=== PATIENT | male | born 1995 | race Caucasian/White ===

== ENCOUNTER 2018-02-21 13:17 | Emergency (ER) | payer OTHER, SELFPAY ==
[2018-02-21 13:18] VITALS: BP 122/64; PULSE 70; RESP 16; TEMP 36.9; O2SAT 99; BMI 24.8
--- NOTE | 2018-02-21 13:38 | ED.DCSUM_ITS ---
- ER Visit Summary Date of Service: 02/21/18 Chief Complaint: [] Abdominal pain, nausea/vomiting/diarrhea History of Present Illness: The patient is a 23 M [] complaining of abdominal pain and nausea, vomiting, diarrhea beginning yesterday. Patient appears slightly anxious. Reports his father was diagnosed with Crohn's. He does not have any history of Crohn's or any GI history. Denies any blood in his stool. Denies hematemesis. Denies fevers. He does note that he feels like he has discomfort in the veins in both of his arms and his antecubital fossa's. Denies any IV drug abuse history. No other complaints at this time. Physical Examination: [] Afebrile, vital signs stable. 23-year-old male who appears slightly anxious, in no acute distress. Cardiovascular exam is regular rate and rhythm. Lungs are clear to auscultation. Abdomen soft and nontender. There is no lower extremity edema. Test Results: [] Labs: CBC, BMP, LFTs, lipase all within normal limits. Emergency Department Course and Treatment: [] Patient given intravenous fluid bolus, Phenergan. On serial exam patient was informed of his laboratory findings and encouraged to follow-up with his primary care physician. Treatment Plan: [] Follow-up with PCP. Disposition: [] Discharge, stable. Impression: [] Abdominal pain, unknown etiology This note was generated with [employer] dictation software. It may contain incorrect words, spelling, and punctuation that were not noted in review of the chart prior to signing ED Disposition - Plan for ED Patient: Chief Complaint: Other, Pain/Inj Referrals: Care Physician,No Primary [Primary Care Provider] -
[2018-02-21] MEDS: proMETHazine 25 MG/ML Syringe 6.25 MG IV (13:46)
[2018-02-21 13:48] LABS: Absolute Lymphocyte Count 1.99 X10^3/ul (0.83-4.51); Absolute Neutrophil Count 4.7 X10^3/uL (2.0-7.7); Basophil# 0.03 X10^3/uL; Basophil% 0.4 % (0-1); Eosinophil# 0.08 X10^3/uL; Eosinophils% 1.1 % (0-5); Hematocrit 45.8 % (40-54); Hemoglobin 15.9 g/dl (13.0-16.5); Lymphocyte # 1.99 X10^3/ul (4.0); Lymphocyte % 26.5 % (19-41); Mean Corp Hgb Conc 34.7 g/gl (32-36); Mean Corpuscular Hgb 29.4 pg (27.0-32.0); Mean Corpuscular Volume 84.7 fL (80-94); Mean Platelet Vol. 10.6 fl (6.2-12.0); Monocyte# 0.72 X10^3/uL; Monocyte% 9.6 % (0-10); Neutrophil # 4.68 X10^3/uL (2.7-7.7); Neutrophil % 62.1 % (47-70); POSITIVE COUNT NO; POSITIVE DIFFERENTIAL NO; POSITIVE MORPHOLOGY NO; Platelet Count 159 K/mm3 (150-450); RBC Distribution Width CV 12.9 % (11.6-14.6); RBC Distribution Width SD 39.8 fl (35.1-43.9); Red Blood Count 5.41 M/mm3 (4.6-6.2); White Blood Count 7.5 K/mm3 (4.4-11.0)
[2018-02-21 14:08] LABS: ALB/GLOB Ratio 1.4 RATIO (0.9-2.4); AST(SGOT) 17 U/L (15-37); Alanine Aminotransfer ALT/SGPT 27 U/L (16-61); Albumin, Serum 4.6 g/dL (3.2-5.0); Alkaline Phosphatase 63 U/L (45-117); Anion Gap 6 (5-15); BUN 17 mg/dL (7-18); Chloride 106 mmol/L (98-107); Creatinine, Serum 1.06 mg/dL (0.70-1.30); EST Glomerular Filtration Rate 94 mL/min (>60); Est Glom Filt Rate - Afr Amer 113 mL/min (>60); Globulin 3.4 g/dL (2.2-4.2); Glucose 88 mg/dL (74-106); Lipase 94 U/L (73-393); Potassium 3.7 mmol/L (3.5-5.1); Sodium Level 141 mmol/L (136-145)
--- NOTE | 2018-02-21 14:12 | ED.DEP ---
ED Disposition - Plan for ED Patient: Disposition: Home or Assisted Living Chief Complaint: Other, Pain/Inj Instructions: Abdominal Pain Referrals: Care Physician,No Primary [Primary Care Provider] -
[2018-02-21 14:18] VITALS: BP 118/75; PULSE 80; RESP 14; O2SAT 99
== END 2018-02-21 14:21 | disposition home or self-care (01) ==
PROVIDERS: Emergency Provider Emergency Medicine
DX: R10.9 Unspecified abdominal pain (principal); R11.2 Nausea with vomiting, unspecified; R19.7 Diarrhea, unspecified; Z83.79 Family history of other diseases of the digestive system
CPT/HCPCS: 80053; 83690; 85025; 96361; 96374; 99283; J7030; J7040; A4216

== ENCOUNTER 2018-10-17 12:22 | Emergency (ER) | payer MEDICARE, SELFPAY ==
[2018-10-17 12:23] VITALS: BP 125/82; PULSE 105; RESP 18; TEMP 37; O2SAT 97; BMI 26.7
--- NOTE | 2018-10-17 13:08 | CT_ITS ---
STUDY: CT ABDOMEN AND PELVIS WITH CONTRAST REASON FOR EXAM: Male, 23 years old. 2 month history of abdominal pain. RADIATION DOSAGE (If Supplied By Facility): CTDIvol = ( 14.3 ) mGy, DLP = ( 877.26 ) mGycm TECHNIQUE: Transaxial images were obtained from the dome of the diaphragm to the symphysis pubis with oral contrast. 100 ml of Isovue 300 contrast was administered. Sagittal and coronal images were reconstructed. Individualized dose optimization techniques were used for this CT. COMPARISON: None. FINDINGS: The visualized lung bases are unremarkable. The visualized portions of the heart are within normal limits. Normal liver. Normal gallbladder and extrahepatic biliary system. Normal spleen. Normal pancreas. Normal bilateral adrenal glands. Normal right kidney. Normal left kidney. Normal visualized stomach. Normal small intestine. There are scattered colonic diverticula consistent with diverticulosis. The appendix is visualized and appears normal. Normal abdominal aorta. Normal inferior vena cava. Normal retroperitoneum. Normal urinary bladder. Normal abdominal wall. Normal osseous structures. CT/Abdomen/Pelvis WITH Contrast IMPRESSION: Normal enhanced CT of the abdomen and pelvis. Electronically Signed: Braulio Delaney MD at 15:52 EST Tel [phone], Service support ,
[2018-10-17] MEDS: 0.9% Normal Saline 1,000 ML 125 ML IV (13:33)
[2018-10-17 13:39] LABS: Absolute Lymphocyte Count 1.02 X10^3/ul (0.83-4.51); Absolute Neutrophil Count 6.1 X10^3/uL (2.0-7.7); Basophil# 0.01 X10^3/uL; Basophil% 0.1 % (0-1); Eosinophil# 0.03 X10^3/uL; Eosinophils% 0.4 % (0-5); Hematocrit 47.1 % (40-54); Hemoglobin 15.5 g/dl (13.0-16.5); Lymphocyte # 1.02 X10^3/ul (4.0); Lymphocyte % 13.3 % (19-41); Mean Corp Hgb Conc 32.9 g/gl (32-36); Mean Corpuscular Hgb 28.5 pg (27.0-32.0); Mean Corpuscular Volume 86.7 fL (80-94); Mean Platelet Vol. 10.3 fl (6.2-12.0); Monocyte# 0.53 X10^3/uL; Monocyte% 6.9 % (0-10); Neutrophil # 6.05 X10^3/uL (2.7-7.7); Neutrophil % 79.2 % (47-70); Platelet Count 157 K/mm3 (150-450); RBC Distribution Width CV 13.2 % (11.6-14.6); RBC Distribution Width SD 41.7 fl (35.1-43.9); Red Blood Count 5.43 M/mm3 (4.6-6.2); White Blood Count 7.7 K/mm3 (4.4-11.0)
[2018-10-17 13:40] LABS: POSITIVE COUNT NO; POSITIVE DIFFERENTIAL NO; POSITIVE MORPHOLOGY NO
[2018-10-17 13:44] LABS: Bacteria 0 SEEN /hpf (None Seen); Mucous, Urine 0 SEEN /hpf (<or=2+); Red Blood Cells-Urine 0 SEEN /hpf (0-5); White Blood Cells 0 SEEN /hpf (0-5)
[2018-10-17 13:47] LABS: Color, Urine Yellow (Yellow); Glucose, Dipstick Normal (Normal); Ketone-Dipstick 5 mg/dl (Negative); Leukocyte Esterase-Dipstick Negative /ul (Negative); Nitrite-Dipstick Negative (Negative); Occult Blood-Urine Negative /ul (Negative); Protein-Dipstick Negative (Negative); Urine Bilirubin Dipstick Negative (Negative); Urine Clarity Sl Cldy (Clear); Urine Urobilinogen Normal (Normal)
[2018-10-17 13:49] LABS: Anion Gap 8 (5-15); BUN 16 mg/dL (7-18); Calcium,Total 9.1 mg/dL (8.5-10.1); Chloride 106 mmol/L (98-107); EST Glomerular Filtration Rate 100 mL/min (>60); Est Glom Filt Rate - Afr Amer 121 mL/min (>60); Estimated Creatinine Clearance 128.26 ml/min; Glucose 100 mg/dL (74-106); Lipase 100 U/L (73-393); Potassium 3.8 mmol/L (3.5-5.1); Sodium Level 142 mmol/L (136-145)
[2018-10-17 13:54] LABS: Squamous Epithelial Cells - UA 0-5 SEEN /hpf (0-5)
[2018-10-17 13:58] LABS: Lactic Acid 1.2 mmol/L (0.4-2.0)
[2018-10-17 14:03] LABS: D-Dimer Quantitative (DVT/PE) 0.35 FEU/ug/m (0.27-0.49)
--- NOTE | 2018-10-17 16:07 | ED.VISSUMM ---
- ER Visit Summary Date of Service: 10/17/18 Chief Complaint: [Abdominal pain] History of Present Illness: The patient is a 23 M [presents to the emergency department with complaint of pain in his left side that he has had for over 2 months. Patient was seen at urgent care and referred to the emergency department. Patient had pain and intermittent episodes of vomiting on a rare occasion. Patient states that at times is hard for him the past the bowel movement where he has to sit on the toilet for long periods of time and that stool however is been soft and yellow in color. He denies any blood in stool or black tarry stools. Denies any fevers. Patient apparently has family history of Crohn's and colitis. Patient denies any chest pain or shortness of breath. Denies recent travel or surgery.] Physical Examination: [HEENT-PERRLA, EOMI. Cranial nerves II through XII grossly intact. TMs clear. Mucous membranes moist. No adenopathy. Cardiovascular-regular rate and rhythm without murmur or ectopy Lungs-clear to auscultation. Mild discomfort to the left lower anterior chest however this does not reproduce his pain. There is some subtle asymmetry of the chest wall on the left compared to the right side. Abdomen-normoactive bowel sounds, soft. Patient does have tenderness palpation over left upper quadrant with some guarding. There is no rebound, rigidity, or perineal signs. Extremities-intact ?4, normal range of motion, normal pulses, atraumatic] Test Results: [CBC with differential obtained showing a 7.7, hemoglobin 15, hematocrit 47, platelets 157. Chemistries were normal. Urinalysis was normal. D-dimer was 0.35. Lactate was normal at 1.2. CT scan abdomen pelvis with IV and p.o. contrast was normal.] Emergency Department Course and Treatment: [Patient received normal saline while in the emergency department. He refused pain medication.] Treatment Plan: [Patient will be given a prescription for [place] for severe pain.] Disposition: [Discharged home in stable condition. Patient will be referred to general surgeon on-call for follow-up] Impression: [Abdominal pain-etiology uncertain] This note was generated with Troodonation software. It may contain incorrect words, spelling, and punctuation that were not noted in review of the chart prior to signing ED Disposition - Plan for ED Patient: Chief Complaint: Flank Pain Referrals: Care Physician,No Primary [Primary Care Provider] -
--- NOTE | 2018-10-17 16:10 | ED.DCSUM_ITS ---
- ER Visit Summary Date of Service: 10/17/18 Chief Complaint: [Abdominal pain] History of Present Illness: The patient is a 23 M [presents to the emergency department with complaint of pain in his left side that he has had for over 2 months. Patient was seen at urgent care and referred to the emergency dep artment. Patient had pain and intermittent episodes of vomiting on a rare occasion. Patient states that at times is hard for him the past the bowel movement where he has to sit on the toilet for long periods of time and that stool however is been soft and yellow in color. He denies any blood in stool or black tarry stools. Denies any fevers. Patient apparently has family history of Crohn's and colitis. Patient denies any chest pain or shortness of breath. Denies recent travel or surgery.] Physical Examination: [HEENT-PERRLA, EOMI. Cranial nerves II through XII william ssly intact. TMs clear. Mucous membranes moist. No adenopathy. Cardiovascular-regular rate and rhythm without murmur or ectopy Lungs-clear to auscultation. Mild discomfort to the left lower anterior chest however this does not reproduce his pain. There is some subtle asymmetry of the chest wall on the left compared to the right side. Abdomen-normoactive bowel sounds, soft. Patient does have tenderness palpation over left upper quadrant with some guarding. There is no rebound, rigidity, or perineal signs. Extremities-intact ?4, normal range of motion, normal pulses, atraumatic] Test Results: [CBC with differential obtained showing a 7.7, hemoglobin 15, hematocrit 47, platelets 157. Chemistries were normal. Urinalysis was normal. D-dimer was 0.35. Lactate was normal at 1.2. CT scan abdomen pelvis with IV and p.o. contrast was normal.] Emergency Department Course and Treatment: [Patient received normal saline while in the emergency department. He refused pain medication.] Treatment Plan: [Patient will be given a prescription for [place] for severe pain.] Disposition: [Discharged home in stable condition. Patient will be referred to general surgeon on-call for follow-up] Impression: [Abdominal pain-etiology uncertain] This note was generated with Anne Fogarty dictation software. It may contain incorrect words, spelling, and punctuation that were not noted in review of the chart prior to signing ED Disposition - Plan for ED Patient: Chief Complaint: Flank Pain Referrals: Care Physician,No Primary [Primary Care Provider] -
--- NOTE | 2018-10-17 16:11 | ED.DEP ---
ED Disposition - Plan for ED Patient: Chief Complaint: Flank Pain Instructions: ED Abdominal Pain Unkn Cause Male Prescriptions: Hydrocodone Bitart/Apap 5-325 [[place] 5MG-325MG] 1 tab PO Q4H PRN PRN 2 Days #10 tab PRN Reason: Pain Referrals: Care Physician,No Primary [Primary Care Provider] - Mateo Muro MD [STAFF PHYSICIAN] - 3-5 Days
[2018-10-17 16:28] VITALS: BP 120/67; PULSE 71; RESP 15; O2SAT 98
--- OUTSIDE RECORDS SUMMARY | 2018-12-22 08:29 | XMS RPT_ITS | Clinical Summary ---
:1995 Author Organization [facility] Address [address] [place] [address] Phone Care Team Providers Name Role Phone Keri Blum Unavailable Unavailable Conditions or Problems Problem Name Problem Onset Status Entry Provider Comment Standard Annotate Code Date Date Description Testicular 92022099 Active Christy L Pain in pain, left (SNOMED CT) / [place] testicle Medications Medication Instructions Start Date Stop Date Generic Name NDC Provider Observed no known medications at Medications Administered No information available. Allergies, Adverse Reactions, Alerts Observed No Known Drug Allergies at Results Date Name Value Unit Range Flag Description Office Visit: left testicular pain NKMED T Documentation of current medications (procedure) MEDS REVIEW Done Documentation of current medications (procedure) FALLRSKASSES No Fall risk assessment SMOK STATUS Never smoker Tobacco use [facility] Lab Report: (P) Urinalysis, Complete WBC DIPSTK U 25 Negative H leukocyte esterase, urine, by dipstick OCC BLD UR Negative Negative Occult Blood, urine NITRITE UA Negative Negative Nitrite Urine UROBILIURDIP Normal mg/dL Normal urobilinogen, urine, by dipstick PROTEIN, URN 15 Negative H Albumin [Presence] in Urine PH URINE 6.5 5.0 - 8.0 pH, urine, semiquantitative SPEC GR URIN 1.015 1.002-1.030 specific gravity, urine KETONES URN Negative Negative ketones, urine, by test strip BILIRUBIN UR Negative Negative bilirubin, urine GLUCOSE UA Normal mg/dL Normal Glucose Urine CLARITY UR Clear Clear clarity, urine, point UA COLOR Yellow Yellow urine color Lab Report: Urinalysis, Complete MUCUS URINE 0 SEEN <or=2+ mucus on urinalysis BACTURMICRO 0 SEEN /hpf /[HPF] None Seen bacteria, urine, microscopic EPI CELL UR 0 SEEN /[LPF] 0-5 epithelial cells, urine RBCS MICRO U 0 SEEN 0-5 RBC urine by microscopy U/A,WBS,C&S 0-5 SEEN 0-5 Urinalysis, white blood cells, culture and sensitivity Plan of Care Type Date Detail Pending order *UAC- Urinalysis, Complete w/ Micro Pending order Follow Up as needed Procedures No information available. Vital Signs Date Name Value Unit Description BMI (Body Mass Index) 22.65 kg/m2 Body Mass Index [Ratio] BP Diastolic 82 mm[Hg] blood pressure, diastolic - 8462-4 BP Systolic 127 mm[Hg] blood pressure, systolic - 8480-6 Heart Rate 97 /min pulse rate E&M - 8867-4 Height 72 [in_us] height E&M - 8302-2 Respiratory Rate 18 /min respiratory rate E&M - 9279-1 Weight Measured 167 [lb_av] weight E&M - 3141-9
--- OUTSIDE RECORDS SUMMARY | 2018-12-22 08:29 | XMS RPT_ITS | Clinical Summary ---
:1995 Author Organization [facility] Address [address] [place] [address] Phone Care Team Providers Name Role Phone Finn HIDALGO, Christy Lopez Unavailable Conditions or Problems Problem Name Problem Onset Status Entry Provider Comment Standard Annotate Code Date Date Description Testicular [id number] Active Christy L Pain in pain, left (SNOMED CT) / Finn testicle Medications Medication Instructions Start Date Stop [...] assessment SMOK STATUS Never smoker Tobacco use [facility] Lab Report: (P) Urinalysis, Complete WBC DIPSTK [...]
--- OUTSIDE RECORDS SUMMARY | 2018-12-22 08:29 | XMS RPT_ITS ---
:1995 Author Organization OHIP Care Team Providers Name Role Phone Primay Care Physicia, No Primary Care Unavailable Shaeur, Remus Attending Unavailable Mateo Muro Attending Unavailable Primay Care Physicia, No Referring Unavailable Primay Care Physicia, No Primary Care Unavailable Nora Farias Attending Unavailable PROBLEMS PROBLEMS DATE TYPE CONDITION / CODE ATTENDING STATUS SOURCE 10/17/2018 Unknown R10.9 - Ungur, Remus Active [place] Unspecified [facility] abdominal pain / Hospital R10.9(ICD-10) Repository PROCEDURES PROCEDURES No Procedure Records FoundRESULTS RESULTS SURGERY VISIT REPORT Observed: 10/23/2018 Status: F Source: GAIL 9:50 AM [facility] REPOSITORY [facility] [address] [place] [address] OFFICE VISIT Date of Service: 10/23/18 MR#: [id number] Acct: [id number] Name: VIJAY LEVI Rep #: [id number] : 1995 Provider: Mateo Muro MD Age/Sex: 23/M Location: [facility] Status: Signed Intake Vital Signs10/23/18 Height 6 ft 10/23/18 Weight: 197 lb 10/23/18 Body Mass Index (BMI) 26.7 10/23/18 Blood Pressure 129/82 H Intake Visit Reasons: Unspecified Abd Pain [facility] ER 10/17 Sheet Hanger Required: No Is patient in pain?: Yes (luq abdomen/chest pain) Pain scale (1-10): 5 Allergies No Known Allergies Allergy (Verified 10/23/18 09:40) Medications NK 10/23/18 [History Confirmed 10/23/18] [facility] Surgical History h/o left shoulder surgery (Acute) Family History Grandfather Diabetes CVA (cerebral vascular accident) Grandmother Diabetes Mother Diabetes Social History Smoking Status: Never smoker alcohol intake: current alcohol intake frequency: a few times a month substance use type: marijuana HPI HPI HPI: VIJAY LEVI, is a 23 M who presents to the office today for left upper quadrant pain. The patient was referred by the emergency room. Assessment AND Plan Plan The patient is having left upper quadrant pain. He explained that he was having constipation and yellow stools. He also explained that his father and grandfather of Crohn's disease and a history of diverticulitis in the family. After about 2 minutes of explaining his symptoms the patient became very agitated and explained to the ER did not even check him for hernias. I simply asked him why he thought he had a hernia and he became very agitated and said that you doctors are only in it for the money and do not even care and I hate Gail I asked him why he thought he had a hernia and if he is experiencing a bulging and he said no that he was only having pain and I said I would expect bulging if he were to have a hernia. The patient was very agitated I told him if he wanted to get up and leave he could I would not charge him for the visit since he seemed very agitated. He then called me and asshole and walked out. Physical exam and review of systems was not performed as the patient terminated the visit. I will not charge him for today's visit. The patient then returned to the office demanding a work release note and I refused. Mateo Muro MD Pager: [facility] [address] [place] [address], [address] [place] [address] Office: Coding Level of Care Code No Charge 10/23/18 0950 <Electronically signed by Mateo Muro MD> Date Mateo Muro MD Cosigner Signature: Date (if applicable) CC: EMERGENCY DEPARTMENT Observed: 10/18/2018 Status: F Source: CRETE SUMMARY 4:04 PM [facility] REPOSITORY [facility] Medical Records Department [address] [place] [address] Emergency Department Summary 10/17/18 1607 MR#: [id number] Acct: [id number] Name: VIJAY LEVI Rep #: [id number] : 1995 23 From: Alejandra Queen DO PCP: Care Physician, No Primary Status: DEP ER - ER Visit Summary Date of Service: 10/17/18 Chief Complaint: [Abdominal pain] History of Present Illness: The patient is a 23 M [presents to the emergency department with complaint of pain in his left side that he has had for over 2 months. Patient was seen at urgent care and referred to the emergency department. Patient had pain and intermittent episodes of vomiting on a rare occasion. Patient states that at times is hard for him the past the bowel movement where he has to sit on the toilet for long periods of time and that stool however is been soft and yellow in color. He denies any blood in stool or black tarry stools. Denies any fevers. Patient apparently has family history of Crohn's and colitis. Patient denies any chest pain or shortness of breath. Denies recent travel or surgery.] Physical Examination: [HEENT-PERRLA, EOMI. Cranial nerves II through XII grossly intact. TMs clear. Mucous membranes moist. No adenopathy. Cardiovascular-regular rate and rhythm without murmur or ectopy Lungs-clear to auscultation. Mild discomfort to the left lower anterior chest however this does not reproduce his pain. There is some subtle asymmetry of the chest wall on the left compared to the right side. Abdomen-normoactive bowel sounds, soft. Patient does have tenderness palpation over left upper quadrant with some guarding. There is no rebound, rigidity, or perineal signs. Extremities-intact 4, normal range of motion, normal pulses, atraumatic] Test Results: [CBC with differential obtained showing a 7.7, hemoglobin 15, hematocrit 47, platelets 157. Chemistries were normal. Urinalysis was normal. D-dimer was 0.35. Lactate was normal at 1.2. CT scan abdomen pelvis with IV and p.o. contrast was normal.] Emergency Department Course and Treatment: [Patient received normal saline while in the emergency department. He refused pain medication.] Treatment Plan: [Patient will be given a prescription for Homeland for severe pain.] Disposition: [Discharged home in stable condition. Patient will be referred to general surgeon on-call for follow-up] Impression: [Abdominal pain-etiology uncertain] This note was generated with REscour dictation software. It may contain incorrect words, spelling, and punctuation that were not noted in review of the chart prior to signing ED Disposition - Plan for ED Patient: Chief Complaint: Flank Pain Referrals: Care Physician,No Primary [Primary Care Provider] - What to do if you have Problems For any increased pain, shortness of breath, bleeding, nausea or vomiting, chest pain, or any unexpected problems, contact your Primary Care Provider. Call [facility] ([phone]) or report to the closest Emergency Room. Call 911 if necessary. 10/18/18 1600 <Electronically signed by Alejandra Queen DO> Date Alejandra Queen DO Cosigner Signature (If Indicated): Date CC: No Primary Care Physician DISCHARGE INSTRUCTION Observed: 10/17/2018 Status: F Source: GAIL 4:12 PM [facility] REPOSITORY [facility] Medical Records Department [address] [place] [address] Discharge Instruction 10/17/18 161 MR#: [id number] Acct: [id number] Name: VIJAY LEVI Rep #: [id number] : 1995 23 From: Alejandra Queen DO PCP: Care Physician, No Primary Status: REG ER ED Disposition - Plan for ED Patient: Chief Complaint: Flank Pain Instructions: ED Abdominal Pain Unkn Cause Male Prescriptions: Hydrocodone Bitart/Apap 5-325 [Homeland 5MG-325MG] 1 tab PO Q4H PRN PRN 2 Days #10 tab PRN Reason: Pain Referrals: Care Physician,No Primary [Primary Care Provider] - Mateo Muro MD [STAFF PHYSICIAN] - 3-5 Days What to do if you have Problems For any increased pain, shortness of breath, bleeding, nausea or vomiting, chest pain, or any unexpected problems, contact your Primary Care Provider. Call [facility] ([phone]) or report to the closest Emergency Room. Call 911 if necessary. 10/17/181611 <Electronically signed by Alejandra Queen DO> Date Alejandra Queen DO Cosigner Signature (If Indicated): Date CC: No Primary Care Physician URINALYSIS, COMPLETE Collected: 10/17/2018 Status: F Source: GAIL 1:40 PM [facility] REPOSITORY Order Comment: Order Date: 10/17/18 How was Urine Obtained? CLEAN CATCH TYPE CODE TESTS RESULT OUT OF RANGE REFERENCE UNITS LAB L400.3000 Yellow COLOR Normal Yellow LAB L400.3050 Clear Sl Normal CLARITY Cldy LAB L400.3200 Normal mg/dl Normal GLUCOSE, UR Normal LAB L400.3300 Negative mg/dL Normal BILIRUBIN URINE Negative LAB L400.3400 Negative mg/dl High 5 KETONE UR LAB L400.3465 1.002-1.030 Normal SP.GR. DIPSTX 1.010 LAB L400.3550 5.0 - 8.0 pH UR Normal 7.0 LAB L400.3600 Negative mg/dl PROT Normal DIPSTX Negative LAB L400.3700 Normal mg/dl Normal UROBILI Normal LAB L400.3750 Negative Normal NITRITE UR Negative LAB L400.3780 Negative /ul Normal OCCULT BLOOD-UR Negative LAB L400.3800 Negative /ul LEUK Normal ESTERASE Negative LAB L400.4050 0-5 /hpf WBC 0 Normal SEEN LAB L400.4100 0-5 /hpf 0 Normal RBC-UA SEEN LAB L400.4150 0-5 /hpf SQUAM Normal EPI 0-5 SEEN LAB L400.4300 None Seen /hpf 0 Normal BACTERIA SEEN LAB L400.4350 <or=2+ /hpf 0 Normal MUCUS, URINE SEEN Performed By: #### L400.0001 #### [facility] [address] [place], [address] CBC W/DIFF, AUTOMATED Collected: 10/17/2018 Status: F Source: CRETE 1:30 PM [facility] REPOSITORY TYPE CODE TESTS RESULT OUT OF RANGE REFERENCE UNITS LAB L100.1000 4.4-11.0 K/mm3 Normal WBC 7.7 LAB L100.1200 4.6-6.2 M/mm3 Normal RBC 5.43 LAB L100.1300 13.0-16.5 g/dl Normal HGB 15.5 LAB L100.1400 40-54 % Normal HCT 47.1 LAB L100.1500 80-94 fL Normal MCV 86.7 LAB L100.1600 27.0-32.0 pg Normal MCH 28.5 LAB L100.1700 32-36 g/gl Normal MCHC 32.9 LAB L100.1810 11.6-14.6 % Normal RDW CV 13.2 LAB L100.1820 35.1-43.9 fl Normal RDW SD 41.7 LAB L100.1900 150-450 K/mm3 Normal PLT 157 LAB L100.2000 6.2-12.0 fl Normal MPV 10.3 LAB L100.2100 47-70 % High NEUT% 79.2 LAB L100.2200 19-41 % Low LY% 13.3 LAB L100.2300 0-10 % Normal MONO% 6.9 LAB L100.2400 0-5 % Normal EO% 0.4 LAB L100.2500 0-1 % Normal BASO% 0.1 LAB L100.2550 0.0-0.9 % Normal IM GRAN % 0.100 Result Comment: IG% - Immature Granulocytes (promyelocytes, myelocytes and metamyelocytes) > 1% indicates that a LEFT SHIFT is Present. LAB L100.2620 2.0-7.7 X10 3/uL Normal Absolute Neut 6.1 LAB L100.2720 0.83-4.51 X10 3/ul Normal Absolute Lymph 1.02 Performed By: #### L100.0100 #### [facility] [address] [place], [place], [id number] BASIC METABOLIC Collected: 10/17/2018 Status: F Source: CRETE PROFILE (BMP) 1:30 PM [facility] REPOSITORY TYPE CODE TESTS RESULT OUT OF RANGE REFERENCE UNITS LAB L501.0100 74-106 mg/dL Normal GLU 100 Result Comment: Fasting Glucose result from 100 to 125 mg/dL suggests IMPAIRED HOMEOSTASIS per A.D.A. criteria. Please note revised GLUCOSE reference range effective 2017. LAB L501.1000 7-18 mg/dL Normal BUN 16 LAB L501.1100 0.70-1.30 mg/dL Normal CREAT,SERUM 1.00 Result Comment: The validity of the calculated GFR AND GFRAA in patients over 70 years has not been determined. Clinical correlation is essential. LAB L501.1110 >60 mL/min Normal EST GFR 100 Result Comment: Non- GFR Calc LAB L501.1115 >60 mL/min Normal EST GFR - AA 121 Result Comment: GFR Calc LAB L501.1255 ml/min Normal Estimated CRCL 128.26 LAB L501.1300 10-20 RATIO BUN/CRE Normal 16.0 LAB L501.2200 8.5-10 mg/dL .1 CA Normal 9.1 LAB L501.5300 136-14 mmol/L 5 NA Normal 142 LAB L501.5600 3.5-5. mmol/L 1 K Normal 3.8 LAB L501.5900 98-107 mmol/L CL Normal 106 LAB L501.6100 21.0-3 mmol/L 2.0 CO2 Normal 28.0 LAB L501.6200 5-15 GAP Normal 8 Performed By: #### L500.2500, L501.2450 #### [facility] [address] [place], [address] LIPASE Collected: 10/17/2018 Status: F Source: CRETE 1:30 PM [facility] REPOSITORY TYPE CODE TESTS RESULT OUT OF RANGE REFERENCE UNITS LAB L501.2450 73-393 U/L Normal LIPASE 100 Performed By: #### L500.2500, L501.2450 #### [facility] [address] [place], [address] LACTIC ACID Collected: 10/17/2018 Status: F Source: CRETE 1:30 PM [facility] REPOSITORY Order Comment: Yes/No query for Sepsis Lactate Rule Y TYPE CODE TESTS RESULT OUT OF RANGE REFERENCE UNITS LAB L503.6005 0.4-2.0 mmol/L Normal LACTIC ACID 1.2 Performed By: #### L503.6005 #### [facility] [address] [place], [address] D-DIMER QUANTITATIVE Collected: 10/17/2018 Status: F Source: CRETE (DVT/PE) 1:30 PM [facility] REPOSITORY TYPE CODE TESTS RESULT OUT OF RANGE REFERENCE UNITS LAB L300.8000 0.27-0.49 FEU/ug/m Normal D-DIMER 0.35 QUANT Result Comment: NORMAL D-Dimer level (<0.50) indicates no DVT or PE. Performed By: #### L300.8000 #### [facility] [address] [place], [address] ABDOMEN/PELVIS WITH Observed: 10/17/2018 Status: F Source: GAIL CONTRAST 1:09 PM [facility] REPOSITORY [facility] Imaging Services [address] [place] [address] Abdomen/Pelvis WITH Contrast MR#: [id number] Acct: [id number] Name: VIJAY LEVI Rep #: [id number] : 1995 M 23 From: Braulio Delaney MD PCP: Care Physician, No Primary Status: REG ER Study: Abdomen/Pelvis WITH Contrast Date of Exam: 10/17/18 Exam# [id number] Ordering Dr: Alejandra Queen DO STUDY: CT ABDOMEN AND PELVIS WITH CONTRAST REASON FOR EXAM: Male, 23 years old. 2 month history of abdominal pain. RADIATION DOSAGE (If Supplied By Facility): CTDIvol = ( 14.3 ) mGy, DLP = ( 877.26 ) mGycm TECHNIQUE: Transaxial images were obtained from the dome of the diaphragm to the symphysis pubis with oral contrast. 100 ml of Isovue 300 contrast was administered. Sagittal and coronal images were reconstructed. Individualized dose optimization techniques were used for this CT. COMPARISON: None. FINDINGS: The visualized lung bases are unremarkable. The visualized portions of the heart are within normal limits. Normal liver. Normal gallbladder and extrahepatic biliary system. Normal spleen. Normal pancreas. Normal bilateral adrenal glands. Normal right kidney. Normal left kidney. Normal visualized stomach. Normal small intestine. There are scattered colonic diverticula consistent with diverticulosis. The appendix is visualized and appears normal. Normal abdominal aorta. Normal inferior vena cava. Normal retroperitoneum. Normal urinary bladder. Normal abdominal wall. Normal osseous structures. CT/Abdomen/Pelvis WITH Contrast IMPRESSION: Normal enhanced CT of the abdomen and pelvis. Electronically Signed: Braulio Delaney MD at 15:52 EST Tel [phone], Service support , CC: No Primary Care Physician; Alejandra Queen DO Section Maintainer: Signed EMERGENCY DEPARTMENT Observed: 02/21/2018 Status: F Source: CRETE SUMMARY 3:28 PM [facility] REPOSITORY [facility] Medical Records Department [address] [place] [address] Emergency Department Summary 02/21/18 1336 MR#: [id number] Acct: [id number] Name: VIJAY LEVI Rep #: [id number] : 1995 23 From: Nora Farias DO PCP: Care Physician, No Primary Status: DEP ER - ER Visit Summary Date of Service: 02/21/18 Chief Complaint: [] Abdominal pain, nausea/vomiting/diarrhea History of Present Illness: The patient is a 23 M [] complaining of abdominal pain and nausea, vomiting, diarrhea beginning yesterday. Patient appears slightly anxious. Reports his father was diagnosed with Crohn's. He does not have any history of Crohn's or any GI history. Denies any blood in his stool. Denies hematemesis. Denies fevers. He does note that he feels like he has discomfort in the veins in both of his arms and his antecubital fossa's. Denies any IV drug abuse history. No other complaints at this time. Physical Examination: [] Afebrile, vital signs stable. 23-year-old male who appears slightly anxious, in no acute distress. Cardiovascular exam is regular rate and rhythm. Lungs are clear to auscultation. Abdomen soft and nontender. There is no lower extremity edema. Test Results: [] Labs: CBC, BMP, LFTs, lipase all within normal limits. Emergency Department Course and Treatment: [] Patient given intravenous fluid bolus, Phenergan. On serial exam patient was informed of his laboratory findings and encouraged to follow-up with his primary care physician. Treatment Plan: [] Follow-up with PCP. Disposition: [] Discharge, stable. Impression: [] Abdominal pain, unknown etiology This note was generated with Receptoration software. It may contain incorrect words, spelling, and punctuation that were not noted in review of the chart prior to signing ED Disposition - Plan for ED Patient: Chief Complaint: Other, Pain/Inj Referrals: Care Physician,No Primary [Primary Care Provider] - What to do if you have Problems For any increased pain, shortness of breath, bleeding, nausea or vomiting, chest pain, or any unexpected problems, contact your Primary Care Provider. Call [facility] ([phone]) or report to the closest Emergency Room. Call 911 if necessary. 02/21/18 1528 <Electronically signed by Nora Farias DO> Date Nora Farias DO Cosigner Signature (If Indicated): Date CC: No Primary Care Physician DISCHARGE INSTRUCTION Observed: 02/21/2018 Status: F Source: CRETE 2:13 PM [facility] REPOSITORY [facility] Medical Records Department [address] [place] [address] Discharge Instruction 02/21/18 1412 MR#: [id number] Acct: [id number] Name: VIJAY LEVI Rep #: [id number] : 1995 23 From: Nora Farias DO PCP: Care Physician, No Primary Status: PRE ER ED Disposition - Plan for ED Patient: Disposition: Home or Assisted Living Chief Complaint: Other, Pain/Inj Instructions: Abdominal Pain Referrals: Care Physician,No Primary [Primary Care Provider] - What to do if you have Problems For any increased pain, shortness of breath, bleeding, nausea or vomiting, chest pain, or any unexpected problems, contact your Primary Care Provider. Call [facility] ([phone]) or report to the closest Emergency Room. Call 911 if necessary. 02/21/18 1413 <Electronically signed by Nora Farias DO> Date Nora Farias DO Cosigner Signature (If Indicated): Date CC: No Primary Care Physician CBC W/DIFF, AUTOMATED Collected: 02/21/2018 Status: F Source: GAIL 1:40 PM [facility] REPOSITORY TYPE CODE TESTS RESULT OUT OF RANGE REFERENCE UNITS LAB L100.1000 4.4-11.0 K/mm3 Normal WBC 7.5 LAB L100.1200 4.6-6.2 M/mm3 Normal RBC 5.41 LAB L100.1300 13.0-16.5 g/dl Normal HGB 15.9 LAB L100.1400 40-54 % Normal HCT 45.8 LAB L100.1500 80-94 fL Normal MCV 84.7 LAB L100.1600 27.0-32.0 pg Normal MCH 29.4 LAB L100.1700 32-36 g/gl Normal MCHC 34.7 LAB L100.1810 11.6-14.6 % Normal RDW CV 12.9 LAB L100.1820 35.1-43.9 fl Normal RDW SD 39.8 LAB L100.1900 150-450 K/mm3 Normal PLT 159 LAB L100.2000 6.2-12.0 fl Normal MPV 10.6 LAB L100.2100 47-70 % Normal NEUT% 62.1 LAB L100.2200 19-41 % Normal LY% 26.5 LAB L100.2300 0-10 % Normal MONO% 9.6 LAB L100.2400 0-5 % Normal EO% 1.1 LAB L100.2500 0-1 % Normal BASO% 0.4 LAB L100.2550 0.0-0.9 % Normal IM GRAN % 0.300 Result Comment: IG% - Immature Granulocytes (promyelocytes, myelocytes and metamyelocytes) > 1% indicates that a LEFT SHIFT is Present. LAB L100.2620 2.0-7.7 X10 3/uL Normal Absolute Neut 4.7 LAB L100.2720 0.83-4.51 X10 3/ul Normal Absolute Lymph 1.99 Performed By: #### L100.0100 #### [place] [place], [address] COMPREHENSIVE METABOLIC Collected: 02/21/2018 Status: F Source: GAIL [place] 1:40 PM [facility] REPOSITORY TYPE CODE TESTS RESULT OUT OF RANGE REFERENCE UNITS LAB L501.0100 74-106 mg/dL Normal GLU 88 Result Comment: Please note revised GLUCOSE reference range effective 2017. LAB L501.1000 7-18 mg/dL Normal BUN 17 LAB L501.1100 0.70-1.30 mg/dL Normal CREAT,SERUM 1.06 Result Comment: The validity of the calculated GFR AND GFRAA in patients over 70 years has not been determined. Clinical correlation is essential. LAB L501.1110 >60 mL/min Normal EST GFR 94 Result Comment: Non- GFR Calc LAB L501.1115 >60 mL/min Normal EST GFR - AA 113 Result Comment: GFR Calc LAB L501.1255 ml/min Normal Estimated CRCL 121.00 LAB L501.1300 10-20 RATIO BUN/CRE Normal 16.0 LAB L501.1500 6.4-8. g/dL 2 T PROT Normal 8.0 LAB L501.1800 3.2-5. g/dL 0 ALB Normal 4.6 LAB L501.1950 2.2-4. g/dL 2 GLOB Normal 3.4 LAB L501.2000 0.9-2. RATIO 4 A/G Normal 1.4 LAB L501.2200 8.5-10 mg/dL .1 CA Normal 9.0 LAB L501.4100 15-37 U/L AST Normal 17 LAB L501.4305 45-117 U/L ALK P Normal 63 LAB L501.4405 16-61 U/L ALT Normal 27 LAB L501.4600 0.20-1 mg/dL .00 T BILI Normal 1.00 LAB L501.5300 136-14 mmol/L 5 NA Normal 141 LAB L501.5600 3.5-5. mmol/L 1 K Normal 3.7 LAB L501.5900 98-107 mmol/L CL Normal 106 LAB L501.6100 21.0-3 mmol/L 2.0 CO2 Normal 29.0 LAB L501.6200 5-15 GAP Normal 6 Performed By: #### L500.4050, L501.2450 #### [facility] [place], [address] LIPASE Collected: 02/21/2018 Status: F Source: GAIL 1:40 PM [facility] REPOSITORY TYPE CODE TESTS RESULT OUT OF RANGE REFERENCE UNITS LAB L501.2450 73-393 U/L Normal LIPASE 94 Performed By: #### L500.4050, L501.2450 #### [facility] [address] [place], [address] CNCO Observed: 12/12/2017 Status: COMPLETED Source: [place] 12:00 AM [facility] REPOSITORY Letter Text [facility] [address] [facility] [address] December 12, 2017 RE: Vijay Levi [address] [facility] [place] [address] 1995 Dear Parent/Guardian of Vijay, We have tried to contact you in regards to your need for a routine physical. Our efforts to reach you have been unsuccessful. Please call [phone] to coordinate your child's plan of care. Thank you and we look forward to talking with you. Sincerely, [facility] ALLERGIES ALLERGIES DATE TYPE / CODE NAME / CODE REACTION SEVERITY SOURCE 10/23/2018 Drug No Known Unknown [facility] Allergy/4160 Allergies/F00 Hospital [address](SNOMED [id number](RXNOR Repository CT) M) ENCOUNTERS ENCOUNTERS ADMIT/DISCHARGE ACCOUNT ADMITTING ENCOUNTER LOCATION SOURCE NUMBER CLASS 10/23/2018/ [id number] Ambulatory BMSBuilding:B [place] 9 4 MSSalomeW[facility] Repository 10/17/2018/ [id number] Emergency [place] 9 6 [facility] ing:ED Repository 02/21/2018/ [id number] Emergency [place] 8 1 [facility] ing:ED Repository PAYERS PAYERS ENCOUNTER GUARANTOR PAYER SUBSCRIBER SOURCE 10/23/2018 VIJAY Fields [id number] [place] Insurance:[facility] JONESDOB: [place], [place] *[place] [facility] [id number] Hospital [address]Shi: (330) Number: Repository [phone] () [id number] Date:[id number] CLAIMS [address] [address]HU: 10/23/2018 Secondary NOT GIVENUNK [place] Insurance:SELF PAY [facility] Number: Effective Repository Date:2018-10-21 10/17/2018 VIJAY T Primary VIJAY Enrico [id number] [place] Insurance:NUNO CRSC JONESDOB: [facility] [place] *[place] [facility] [id number] Hospital [address]Oll: (330) Number: Repository [phone] () [id number] Date:[id number] CLAIMS [address] [address]ZW: 10/17/2018 Secondary NOT GIVENUNK [place] Insurance:SELF PAY [facility] Number: Effective Repository Date:2018-10-17 02/21/2018 VIJAY T Primary VIJAY T [place] [id number] [place] Insurance:ALIA LEVIDOB: [facility] Number: [id number] Hospital [address]Ucr: 330 [id number] Repository [phone] () Date:[id number] [place] [address], [place] [address]QB: 02/21/2018 Secondary NOT GIVENUNK [place] Insurance:SELF PAY [facility] Number: Effective Repository Date:2018-02-21
--- OUTSIDE RECORDS SUMMARY | 2018-12-22 08:29 | XMS RPT_ITS | Clinical Summary ---
:1995 Author Organization [facility] Address [address] [place] [address] Phone Care Team Providers Name Role Phone Finn HIDALGO, Christy Lopez Unavailable Conditions or Problems Problem Name Problem Onset Status Entry Provider Comment Standard Annotate Code Date Date Description Testicular [id number] Active Christy Lopez Pain in pain, left (SNOMED CT) / Finn morrison MD Medications No information available. Medications Administered No information available. Allergies, Adverse Reactions, Alerts No information available. Results Date Name Value Unit Range Flag Description Lab Report: (P) Urinalysis, Complete WBC DIPSTK [...] Pending order *UAC- Urinalysis, Complete w/ Micro Procedures No information available. Vital Signs No information available.
== END 2018-10-17 16:31 | disposition home or self-care (01) ==
LOC: ED 13:49
PROVIDERS: Emergency Provider Emergency Medicine
DX: R10.12 Left upper quadrant pain (principal); Z83.79 Family history of other diseases of the digestive system
CPT/HCPCS: 74177; 80048; 81001; 83605; 83690; 85025; 85379; 96360; 96361; 99283; J7030; Q9967

== ENCOUNTER → 2023-09-12 | Outpatient (CLI) | payer OTHER, SELFPAY ==
[2023-09-12 22:16] LABS: Absolute Lymphocyte Count 1.64 X10^3/uL (0.83-4.51); Absolute Neutrophil Count 8.3 X10^3/uL (2.0-7.7); Basophil# 0.03 X10^3/uL; Basophil% 0.3 % (0-1); Eosinophil# 0.03 X10^3/uL; Eosinophils% 0.3 % (0-5); Hematocrit 47.9 % (40-54); Hemoglobin 15.8 g/dL (13.0-16.5); Lymphocyte # 1.64 X10^3/ul (0.83-4.51); Lymphocyte % 15.1 % (19-41); Mean Corpuscular Hgb 28.4 pg (27.0-32.0); Mean Corpuscular Volume 86.2 fL (80-94); Mean Platelet Vol. 11.3 fl (6.2-12.0); Monocyte# 0.87 X10^3/uL; NRBC Flagged by Analyzer 0 % (0-5); Neutrophil % 76.1 % (47-70); Platelet Count 200 K/mm3 (150-450); RBC Distribution Width CV 12.5 % (11.6-14.6); RBC Distribution Width SD 39.2 fl (35.1-43.9); Red Blood Count 5.56 M/mm3 (4.6-6.2); White Blood Count 10.9 K/mm3 (4.4-11.0)
[2023-09-12 22:37] LABS: ALB/GLOB Ratio 1.3 RATIO (0.9-2.4); AST(SGOT) 15 U/L (15-37); Alanine Aminotransfer ALT/SGPT 23 U/L (16-61); Albumin, Serum 4.4 g/dL (3.2-5.0); Alkaline Phosphatase 67 U/L (45-117); Anion Gap 8 (5-15); BUN 16 mg/dL (7-18); BUN/Creat Ratio 15.5 RATIO (10-20); Chloride 106 mmol/L (98-107); Creatinine, Serum 1.03 mg/dL (0.70-1.30); EST Glomerular Filtration Rate 92 mL/min (>60); Est Glom Filt Rate - Afr Amer 112 mL/min (>60); Globulin 3.4 g/dL (2.2-4.2); Glucose 95 mg/dL (74-106); Potassium 3.5 mmol/L (3.5-5.1); Protein, Total 7.8 g/dL (6.4-8.2); Sodium Level 141 mmol/L (136-145); Thyroid Stim Hormone (TSH) 0.69 uIU/mL (0.358-3.74)
== END | disposition home or self-care (01) ==
PROVIDERS: Referring Provider Nurse Practitioner; Visit Provider Nurse Practitioner
DX: R10.32 Left lower quadrant pain (principal); R11.2 Nausea with vomiting, unspecified
CPT/HCPCS: 80053; 84443; 85025

== ENCOUNTER → 2024-10-30 | Outpatient (CLI) | payer SELFPAY ==
--- NOTE | 2024-10-30 12:15 | RAD_ITS ---
EXAM: SHOULDER MIN 2 VIEWS CLINICAL HISTORY: Pain following recent fall. Prior left shoulder surgery. COMPARISON: None. TECHNIQUE: Four views were obtained. FINDINGS: Mild deformity along the medial aspect of the head of the humerus suggestive of mild degenerative change. RAD/Shoulder min 2 Views IMPRESSION: Mild degenerative changes. Reading Location: [facility]-
== END | disposition home or self-care (01) ==
PROVIDERS: Referring Provider Nurse Practitioner Family; Visit Provider Nurse Practitioner Family
DX: S40.012A Contusion of left shoulder, initial encounter (principal)
CPT/HCPCS: 73030